=== PATIENT | female | born 1980 | race Caucasian/White ===

== ENCOUNTER 2019-02-26 21:09 | Emergency (ER) | payer OTHER ==
[~2019-02-26] VITALS: Ht 170.2 cm; Wt 63.5 kg
--- NOTE | 2019-02-26 21:13 | NUR ---
PT AMBULATED TO BED 04.
[2019-02-26 21:15] VITALS: BP 144/110
--- NOTE | 2019-02-26 21:19 | NUR ---
PA WITH PT
--- NOTE | 2019-02-26 21:20 | NUR ---
38 YO F BIB SELF PRESENTS TO ED C/O 05/17 SHARP, THROBBING RIGHT HIP PAIN X 3 WEEKS. PT STATES SHE HAD A SKATEBOARDING INJURY 3 MONTHS AGO AND BELIEVES IT MAY BE RELATED TO THAT. SHE REPORTS HAVING MINOR PAIN SINCE THE INJURY BUT IT HAS INCREASED OVER TIME. -- PT IS CALM, COOPERATIVE, ANSWERING QUESTIONS APPROPRIATELY. BEHAVIOR APPROPRIATE. -- SKIN PINK, WARM, DRY. BREATHING EVEN, UNLABORED. -- NO GROSS DEFORMITY NOTED. PMH-- OVARIAN, BREAST CANCER RX- DENIES
[2019-02-26] MEDS ORDERED: ACETAMINOPHEN EXTRA STRENGTH 500 MG TAB PO ONE (21:30)
--- NOTE | 2019-02-26 21:34 | NUR ---
X-Ray at bedside.
[2019-02-26 22:30] VITALS: BP 137/99
--- NOTE | 2019-02-26 22:30 | NUR ---
Patient discharged with v/s stable. Written and verbal after care instructions given and explained. Patient alert, oriented and verbalized understanding of instructions. Ambulatory with steady gait. All questions addressed prior to discharge. ID band removed. Patient advised to follow up with PMD. Rx of Ibprofen, Prednisone, Acetaminophen and Keflex. given. Patient educated on indication of medication including possible reaction and side effects. Opportunity to ask questions provided and answered.
== END 2019-02-26 22:30 | disposition home or self-care (01) ==
LOC: MED 21:09
DX: M25.551 Pain in right hip (principal); F17.210 Nicotine dependence, cigarettes, uncomplicated; Z88.5 Allergy status to narcotic agent
CPT/HCPCS: 73502; 81002; 81025; 99283